=== PATIENT | female | born 2000 | race Caucasian/White ===

== ENCOUNTER 2024-05-10 09:45 | Inpatient (IN) | payer BC, SELFPAY ==
[2024-05-08 09:32] VITALS: BP 111/74
[2024-05-08 09:55] LABS: Hematocrit 39.9 % (37.0-47.0); Hemoglobin 13.6 g/dL (12.0-16.0); Mean Corp Hgb Conc. 34.1 g/dL (33.0-37.0); Mean Corpuscular Hgb 27.7 pg (27.0-31.0); Mean Corpuscular Volume 81.3 fL (81.0-99.0); Mean Platelet Volume 10.2 fL (7.4-10.4); Platelet Count 331 10^3/uL (130-400); Red Blood Cell Count 4.91 10^6/uL (4.20-5.40); Red Cell Dist. Width 13.9 % (11.5-14.5); White Blood Cell Count 14.1 10^3/uL (4.8-10.8)
[2024-05-08 10:25] LABS: ALT (SGPT) 44 U/L (0-35); AST (SGOT) 30 U/L (14-36); Albumin 4.6 g/dl (3.5-5.0); Alkaline Phosphatase 51 U/L (38-126); Blood Urea Nitrogen 14 mg/dl (7-17); Carbon Dioxide 25 mmol/L (22-30); Chloride 101 mmol/L (98-107); Glucose 85 mg/dl (70-99); Potassium 4.5 mmol/L (3.5-5.1); Sodium 141 mmol/L (135-145); Total Bilirubin 0.7 mg/dl (0.2-1.3); Total Protein 7.8 g/dl (6.3-8.2); eGFR > 60.00
[2024-05-08 10:47] LABS: % Basophils 0.8 % (0-2); % Eosinophils 2.9 % (0-6); % Immature Granulocytes 6.3 % (0-0.5); % Lymphocytes 16.2 % (20.5-51.1); % Monocytes 7.9 % (1.7-9.3); % Neutrophils 65.9 % (42.2-75.2); Absolute Basophils 0.1 10^3/uL (0-0.2); Absolute Eosinophils 0.4 10^3/uL (0-0.7); Absolute Immature Granulocytes 0.9 10^3/uL (0-0.05); Absolute Lymphocytes 2.3 10^3/uL (1.2-3.4); Absolute Monocytes 1.1 10^3/uL (0.1-0.6); Absolute Neutrophils 9.3 10^3/uL (1.4-6.5); Nucleated Red Blood Cells % 0 %
[2024-05-08 12:00] VITALS: BP 117/68
--- NOTE | 2024-05-08 12:24 | ED.GENMED ---
History of Present Illness
General
Chief Complaint: Cold/Flu/URI Symptoms
Source: patient
Exam Limitations: none
Time Seen by Provider: 05/08/24 11:02
Nursing documentation reviewed up to this point in time: agreed with
History of Present Illness
History of Present Illness:
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 Patient reports she has been on Augmentin, azithromycin and cefuroxime and is still having a cough productive of green mucus and
shortness of breath. Patient reports she does not have a history of asthma or smoking. Patient reports she is using albuterol at home every 4 hours via inhaler and finished a steroid Dosepak about 4 days ago. Patient reports that she feels like
she is gasping to breathe with just simple walking.
Past History
Past History
ED Past Medical History: Other (POTS syndrome)
ED Past Surgical History: Other (Partial nephrectomy)
Social History
Tobacco: Non-smoker
Alcohol: None
Drug: None
Personal: Other
Living: with family
Employment: Employed
Family History
Family History: Other
Review of Systems
Review of Systems
Allergies reviewed?: Yes
Other source history: family
All Other Systems: ROS reviewed and negative except as documented in HPI and ROS
Constitutional: Reports fatigue
EENT: Reports no symptoms
Respiratory: Reports cough and trouble breathing
Cardiac: Reports no symptoms
ABD/GI: Reports no symptoms
: Reports no symptoms
Musculoskeletal: Reports no symptoms
Skin: Reports no symptoms
Neurological: Reports no symptoms
Endocrine: Reports no symptoms
Hematologic/Lymphatic: Reports no symptoms
Psychiatric: Reports no symptoms
Phy Exam
Physical Exam
Physical Exam:
Physical Exam
General: Nontoxic, mild dyspnea with speaking
Neck: supple. no meningeal signs. normal psoterior pharynx
Heart: Tachycardic, no murmur
Lungs: Coughing, diffuse wheezing
Abdomen: normal bowel sounds. not tender. no CVAT
Neuro: alert and oriented. no focal neurological deficits
Skin: no rash
Psychiatric: well kept. interactive and cooperative
Extremities: no edema. no calf tenderness. negative homans. good distal pulses
Course
Orders/Labs/Results
Orders:
Orders
05/08/24 09:42
CMP [Comprehensive Metabolic Panel] Urgent
Complete Blood Count/With Diff Urgent
05/08/24 10:30
CR Chest - 2 Views Urgent
Comment:
Reason For Exam: worsening cough
05/08/24 12:23
Dexamethasone Sod Phosphate [Decadron] 10 mg IV NOW STA
Ipratropium/Albuterol Sulfate [Duoneb] 3 ml INH R NOW ONE
05/08/24 12:24
COVID-19 Antigen Urgent
Source: Nasal Swab
Influenza A+B Rapid Molecular Urgent
ROD Source: Nasal Swab
Specimen Description:
05/08/24 12:28
LevoFLOXacin 750 MG/150 ML [Levaquin] 750 mg in 150 ml IV NOW
05/08/24 12:29
Procalcitonin Urgent
PCT Algorithmm Indication: Respiratory
Abnormal Lab Results
05/08/24
09:42
WBC 14.1 H 10^3/uL
(4.8-10.8)
Abs Immat Gran (auto) 0.9 H 10^3/uL
(0-0.05)
Absolute Neuts (auto) 9.3 H 10^3/uL
(1.4-6.5)
Absolute Monos (auto) 1.1 H 10^3/uL
(0.1-0.6)
Immature Gran % 6.3 H %
(0-0.5)
Lymphocytes % 16.2 L %
(20.5-51.1)
ALT 44 H U/L
(0-35)
05/08/24 09:42
05/08/24 09:42
Vital Signs
Initial and Last Documented VS:
Initial Vital Signs
Temp Pulse Resp BP Pulse Ox
97.6 F 103 20 111/74 98
05/08/24 09:32 05/08/24 09:32 05/08/24 09:32 05/08/24 09:32 05/08/24 09:32
Last Documented Vital Signs
Temp Pulse Resp BP Pulse Ox
97.6 F 103 20 111/74 98
05/08/24 09:32 05/08/24 09:32 05/08/24 09:32 05/08/24 09:32 05/08/24 09:32
MDM/Problems Addressed
Differential Diagnosis Includes:
Acute viral pneumonia, acute bacterial pneumonia, CHF, PE
MDM/Problems Addressed:
Patient presents with acute shortness of breath, wheezing and cough
*Radiology
Radiology exam reviewed: preliminary read by ED provider (Left lower lobe infiltrate seen by me) and radiology read reviewed
*Pulse Oximetry
Patient hypoxic: no
*EKG
Interpreted by ED Provider?: NA
*Civil Engineering Intern Interpretation
Rate: Civil Engineering Intern- N/A
*Critical Care Note
Total Time (30-74mins, 75-104mins- exclusive of procedures): 35 minutes
comment:
35 minutes critical care given to patient including frequent reassessments of her respiratory effort, speaking to the admitting team, counseling the patient, reviewing her lab work and chest x-ray
Data Reviewed
Source: patient
Patient Management
Social determinants of health affecting care: Living situation and Strong social support
Discussion with other providers: Hospitalist
Escalation/DeEscalation of care consider admission/obs:
Given patient's persistent shortness of breath and wheezing despite outpatient steroids and albuterol, and clinical and radiographical signs of pneumonia despite outpatient antibiotics, decision made to admit patient for acute bronchospasm and
pneumonia
ED Attending Note
-
Portions of this chart may have been created with voice recognition software.� Occasional wrong word or��sound alike� substitutions may have occurred due to the inherent limitations of voice recognition software.
Discharge Plan
Departure
Patient Disposition: Admit
Date of Disposition: 05/08/24
Time of Disposition: 12:23
Admit to: Med/Surg
Presentation/result/management discussed w/ accepting MD/DO: Hospitalist
Patient with high blood pressure during this ER visit?: No
Condition: Good
Covid-19: Not Applicable
Discharge Problem:
Left lower lobe pulmonary infiltrate, Acute bronchospasm, Acute respiratory distress
Prescriptions:
No Action
cefpodoxime 200 mg Tablet
200 mg PO BID
albuterol sulfate 2.5 mg /3 mL (0.083 %) Solution For Nebulization
2.5 mg INHALATION R Q4HPRN PRN (Reason: sob)
cetirizine [Zyrtec] 10 mg Tablet
10 mg PO HS
zinc sulfate 50 mg zinc (220 mg) Tablet
50 mg PO DAILY
ascorbic acid (vitamin C) [Vitamin C] 500 mg Tablet
500 mg PO DAILY
albuterol sulfate [ProAir HFA] 90 mcg/actuation Hfa Aerosol Inhaler
2 puff INHALATION R Q6HPRN PRN (Reason: sob)
cholecalciferol (vitamin D3) [Vitamin D3] 25 mcg (1,000 unit) Tablet
25 mcg PO DAILY
guaifenesin [Mucinex] 600 mg Tablet Extended Release 12hr
600 mg PO BIDPRN PRN (Reason: cough)
magnesium oxide 400 mg magnesium Tablet
400 mg PO DAILY
Referrals:
Ijeoma Parker PA-C [Family Provider] -
Interventions
Interventions:
*Risk Screen - Suicide Last Done: 05/08/24 09:32
*General Assessment Last Done: 05/08/24 09:32
*ED COVID-19 Vaccine History Last Done: 05/08/24 09:32
Discharge Date and Time
Print Language: ARABIC
--- NOTE | 2024-05-08 12:49 | HPS.HSE ---
Addendum entered and electronically signed by Ernesto Vasquez MD 05/08/24 13:38:
I saw and examined the patient.
The SPUD DRILLER or PA's note was reviewed and I agree with the note.
Comment:
23F no significant PMH
a/w Post-Pneumonia Cough with Acute Bronchospasm
- pending procalcitonin -till then hold off on further antibiotics
- c/w Decadron
- c/w DuoNeb QID and PRN
- c/w Mucinex
- c/w Tessalon PRN
Full code
DVT Px w LMWH
Obs MS
Original Note:
Family Physician
-
Family Physician: Ijeoma Parker PA-C
Chief Complaint
-
Cough and Shortness of Breath
History of Present Illness
Patient is a 23 y/o female without significant past medical history who presents with persistent cough and shortness of breath. Patient reports her symptoms started about two weeks ago. She was seen at an urgent care facility last Thursday (about 9
days ago) at which time she tested negative for COVID and Influenza. She was given a coarse of azithromycin and cefpodoxime, as well as a coarse of steroids. She reports initial improvement, but states after she finished the coarse of steroids 4
days ago her symptoms worsened again. She reports cough is productive of green mucus, and she reports associated shortness of breath and chest tightness. She reports fever initially which resolved with antibiotics, and have not return. She has
been using an inhaler/nebulizer without much improvement in her symptoms. She does not smoke or vape, and denies any prior history of asthma.
Medical History
Past Medical History
Past Medical History: Reports Other
Additional Past Medical History:
Environmental Allergies
Past Surgical History: Reports Other
Additional Past Surgical History:
Partial Nephrectomy
Social History
Tobacco: Non-smoker
Alcohol: Occasional
Drug: None
Family History
Family History: Not pertinent
Allergies / Home Medications
Allergies reflects when Allergies were last updated in [facility].
Home Medications with original date entered in [facility]
Allergy/Medication List:
Allergies
Allergy/AdvReac Type Severity Reaction Status Date / Time
No Known Allergies Allergy Verified 05/08/24 09:35
Home Medications
albuterol sulfate 2.5 mg/3 mL (0.083 %) solution for nebulization 2.5 mg inhalation R Q4HPRN PRN sob 05/08/24
albuterol sulfate 90 mcg/actuation aerosol inhaler 2 puff inhalation R Q6HPRN PRN sob 05/08/24
ascorbic acid (vitamin C) 500 mg tablet (Vitamin C) 500 mg PO DAILY 05/08/24
cefpodoxime 200 mg tablet 200 mg PO BID 05/08/24
cetirizine 10 mg tablet (Zyrtec) 10 mg PO HS 05/08/24
cholecalciferol (vitamin D3) 25 mcg (1,000 unit) tablet (Vitamin D3) 25 mcg PO DAILY 05/08/24
guaifenesin 600 mg tablet, extended release 12 hr (Mucinex) 600 mg PO BIDPRN PRN cough 05/08/24
magnesium oxide 400 mg PO DAILY 05/08/24
zinc sulfate 50 mg zinc (220 mg) tablet 50 mg PO DAILY 05/08/24
Review of Systems
-
A 12 point ROS was completed and negative except as noted: Yes
Respiratory: Reports See HPI
Cardiac: Denies Chest Pain or Palpitations
Physical Exam
Vital Signs
Vital Signs
Temp Pulse Resp BP Pulse Ox
97.6 F 103 20 111/74 98
05/08/24 09:32 05/08/24 09:32 05/08/24 09:32 05/08/24 09:32 05/08/24 09:32
Physical Exam
General: Comfortable and Conversant
HEENT: Anicteric and Other (Mask present over nose and mouth); No Oxygen
Respiratory: Wheezes, Non Labored Respirations and Other (Frequent Cough)
Cardiac: S1/S2 and Regular Rhythm; No Tachycardia
GI: Soft and Non Distended
Musculoskeletal: No Clubbing and No Cyanosis
Skin: Warm and Dry
Neuro: Awake, Alert, Oriented and Nonfocal/grossly intact
Psych: Calm
Laboratory Results
-
05/08/24 09:42
05/08/24:42
Laboratory Results
Total Bilirubin 0.7 mg/dl (0.2-1.3) 05/08/24:42
AST 30 U/L (14-36) 05/08/24 09:42
ALT 44 U/L (0-35) H 05/08/24:42
Alkaline Phosphatase 51 U/L (38-126) 05/08/24 09:42
Chest X-Ray:
Left lower lobe pneumonia
Data Reviewed
-
Diagnostic Radiology: Report Reviewed by me
Lab Data: Labs Reviewed by me
Impression/Plan
-
Post-Pneumonia Cough with Acute Bronchospasm
-Check procalcitonin - If negative would hold off on further antibiotics
-Continue Decadron
-Continue Duoneb QID and PRN
-Continue Mucinex
-Add Tessalon PRN
Leukocytosis, likely related to recent steroids
-Patient reports fever have resolved, therefore doubt active infection
-Recheck CBC in AM
-Monitor fever curve
DVT proph: Lovenox
Code Status: Full Code
[2024-05-08] MEDS: DUONEB 3 ML INH ×3 (12:56→20:59)
[2024-05-08] MEDS: DECADRON 10 MG IV (12:56)
[2024-05-08 13:11] LABS: COVID-19 Antigen Negative (Negative)
[2024-05-08 13:50] LABS: Procalcitonin < 0.05 ng/ml (0.0-0.25)
[2024-05-08 14:00] VITALS: BP 109/72
[2024-05-08 16:00] VITALS: BP 104/63
[2024-05-08 17:04] VITALS: BP 110/92
[2024-05-08 17:05] VITALS: BMI 16.9
--- NOTE | 2024-05-08 17:20 | PTCARENOTE ---
Pt was received from ED. Pt ambulated to the room. Dyspnea on exertion and when talking. Occasional cough. Pt oriented to the room and the care plan.
[2024-05-08] MEDS: DECADRON 4 MG IV (20:13)
[2024-05-08] MEDS: MUCINEX 600 MG PO (20:13)
[2024-05-08] MEDS: TESSALON PERLES 200 MG PO (20:20)
[2024-05-08] MEDS: ZYRTEC 10 MG PO (21:46)
[2024-05-08 23:00] VITALS: BP 104/60
[2024-05-09] MEDS: DUONEB 3 ML INH ×5 (00:08→19:17)
[2024-05-09] MEDS: DECADRON 4 MG IV ×3 (04:54→21:10)
--- NOTE | 2024-05-09 06:33 | W.PN.HOSP.TC ---
Today's Communication/Plan
-
steroids
bronchodilators
increased mucinex
prn antitussives
Pulm eval requested
Assessment / Plan
Assessment / Plan
Physical Exam
General: Comfortable and Conversant
HEENT: Anicteric and Other (Mask present over nose and mouth); No Oxygen
Respiratory: Significant rhonchi left lung base
Cardiac: S1/S2 and Regular Rhythm; No Tachycardia
GI: Soft and Non Distended
Musculoskeletal: No Clubbing and No Cyanosis
Skin: Warm and Dry
Neuro: Awake, Alert, Oriented and Nonfocal/grossly intact
Psych: Calm
HPI: Patient is a 23 y/o female without significant past medical history who presents with persistent cough and shortness of breath. Patient reports her symptoms started about two weeks ago. She was seen at an urgent care facility last Thursday
(about 9 days ago) at which time she tested negative for COVID and Influenza. She was given a coarse of azithromycin and cefpodoxime, as well as a coarse of steroids. She reports initial improvement, but states after she finished the coarse of
steroids 4 days ago her symptoms worsened again. She reports cough is productive of green mucus, and she reports associated shortness of breath and chest tightness. She reports fever initially which resolved with antibiotics, and have not return.
She has been using an inhaler/nebulizer without much improvement in her symptoms. She does not smoke or vape, and denies any prior history of asthma
Post-Pneumonia Cough with Acute Bronchospasm
-Procal neg
- D-dimer neg
-Continue Decadron
-Continue Duoneb QID and PRN
-Continue Mucinex dose increased to 1200 mg BID
-incentive spirometer, acapella, Vest Chest PT
-Tessalon PRN
-Pulnaya ruiz requested
Leukocytosis, likely related to recent steroids
-Patient reports fever have resolved, therefore doubt active infection
-Recheck CBC in AM
-Monitor fever curve
DVT proph: encourage ambulation
Code Status: Full Code
I spent a total of 40 minutes with the patient or on the floor. More than 50% of this time involved counseling and coordination of care.
Anticipated Discharge: 24 - 48 hours
Subjective/Interval History
-
Date of Service: May 09, 2024
persistent cough. exertional dyspnea but otherwise stable respiratory status on room air. No issues with ambulation. Reports difficulty expectorating
Objective Data
-
Labs:
Laboratory Results
05/09/24
06:00
WBC Pending
Hgb Pending
Hct Pending
Plt Count Pending
Vital Signs:
Vital Signs
Temp Pulse Resp BP Pulse Ox
98.6 F 98 18 104/60 97
05/08/24 23:00 05/09/24 00:11 05/09/24 00:11 05/08/24 23:00 05/09/24 00:11
[2024-05-09 08:23] VITALS: BP 106/66
[2024-05-09] MEDS: ZINC 50 MG PO (08:49)
[2024-05-09] MEDS: VITAMIN D3 (cholecalciferol) 25 MCG PO (08:49)
[2024-05-09] MEDS: MUCINEX 600 MG PO (08:49)
[2024-05-09] MEDS: MAG-TAB SR 84 MG PO (08:49)
[2024-05-09] MEDS: VITAMIN C 500 MG PO (08:49)
[2024-05-09 09:08] LABS: Hematocrit 38.4 % (37.0-47.0); Hemoglobin 12.9 g/dL (12.0-16.0); Mean Corp Hgb Conc. 33.6 g/dL (33.0-37.0); Mean Corpuscular Hgb 27.6 pg (27.0-31.0); Mean Corpuscular Volume 82.1 fL (81.0-99.0); Mean Platelet Volume 10.8 fL (7.4-10.4); Platelet Count 330 10^3/uL (130-400); Red Blood Cell Count 4.68 10^6/uL (4.20-5.40); White Blood Cell Count 20.6 10^3/uL (4.8-10.8)
[2024-05-09 12:05] VITALS: BMI 16.9
[2024-05-09] MEDS: FLUSH (NSS) 1 FLUSH IV (12:11)
[2024-05-09 15:56] VITALS: BP 120/65
[2024-05-09 16:00] LABS: APTT 29.9 Sec (23.4-35.0)
[2024-05-09 16:07] LABS: D-Dimer < 0.27 ug/mlFEU (0.00-0.50)
--- NOTE | 2024-05-09 16:08 | PTCARENOTE ---
Pt AAO x3, DOLL well, OOB in room/to BR; ronald well. VSS. On room air- pulse ox 97%, pt denies SOB; has frequent harsh, non-productive cough. Abd soft, ronald PO well. Voids in BR without difficulty. Pt resting in bed at present, no c/o. Will
continue to monitor.
--- NOTE | 2024-05-09 16:44 | CON.PUL ---
Addendum entered and electronically signed by Bassem John MD 05/09/24 20:09:
Of note that she says that she had a partial nephrectomy as 'part of her kidney was ' at [age] of age
Original Note:
Consultation
Consultation Request
Date/Time Consultation Requested: 05/09/2024 - 1499
Date/Time Consultation Performed: 05/09/2024 - 1539
Requesting Provider: Dr. Gibbs
Performing Provider: Dr. John
Reason for Consultation: RENTERIA/Pneumonia
Medical History
-
Chief Complaint: Chills, headache + SOB
History of Present Illness:
23-year-old female with a past medical history of environmental allergies who presents with chills, JACKSON + SOB. She says she was recently diagnosed with pneumonia last week and has been on antibiotics + steroids but her SOB has persisted. 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 Her symptoms had initially began about 2 weeks ago and she went to an urgent care facility where she was negative for COVID-19 + flu. She was given azithromycin + cefpodoxime + steroids and had actually initially improved but then
symptoms began to worsen after finishing her steroids about 4 days ago. Her cough is productive of green phlegm and she has chest tightness + SOB. She has been using an inhaler/nebulizer at home without improvement in her SOB. She is a non-smoker
and has no history of chronic lung disease. In the ER she was afebrile to 97.6 �F, pulse rate 103, breathing at 20 breaths/min, BP 111/74 and saturating 98% on room air. Initial labs showed WBC 14.1, Hb 13.6, absolute eosinophil count 400, ALT
mildly elevated at 44, procalcitonin negative at <0.05 and COVID-19 antigen negative. Flu A/B swab negative. CXR shows a left lower lobe pneumonia. In the ER she was given DuoNebs + Decadron and admitted to the hospitalist service. Pulmonary now
consulted for additional management/recommendations.
When I saw the patient she was resting in bed with her boyfriend, Lopez, at bedside. All questions were answered. Lizt currently at bedside and she says it has been helping her get her phlegm out. She currently has white phlegm although was green
prior to arrival. She currently feels better with her SOB, but still unable to take in a deep breath due to cough and shortness of breath. She says that she used to get sick a lot when she was a child, especially with strep throat. She carries no
history of asthma. She has seasonal/cat allergies. Currently denies chest pain, JACKSON, abdominal pain, nausea, diarrhea, fevers or chills.
PMHx: Allergies
PSHx: Partial nephrectomy
Past Medical History
Past Medical History: Other (Above as per HPI)
Past Surgical History: Other (Above as per HPI)
Social History
Tobacco: Non-smoker
Alcohol: Occasional
Drug: None
Family History
Family History: Reviewed & Not Pertinent
Allergies / Home Medications
Allergies
Allergy/AdvReac Type Severity Reaction Status Date / Time
No Known Allergies Allergy Verified 05/08/24 09:35
Home Medications
�Medication �Instructions �Recorded �Confirmed �Last Taken �Type
albuterol sulfate 2.5 mg/3 mL 2.5 mg inhalation R Q4HPRN PRN sob 05/08/24 05/08/24 05/07/24 History
(0.083 %) solution for nebulization
albuterol sulfate 90 mcg/actuation 2 puff inhalation R Q6HPRN PRN sob 05/08/24 05/08/24 Unknown History
aerosol inhaler
ascorbic acid (vitamin C) 500 mg 500 mg PO DAILY Supplement 05/08/24 05/08/24 05/07/24 History
tablet (Vitamin C)
cefpodoxime 200 mg tablet 200 mg PO BID Infection 05/08/24 05/08/24 05/08/24 History
cetirizine 10 mg tablet (Zyrtec) 10 mg PO HS Allergies 05/08/24 05/08/24 05/07/24 History
cholecalciferol (vitamin D3) 25 25 mcg PO DAILY Supplement 05/08/24 05/08/24 Unknown History
mcg (1,000 unit) tablet (Vitamin
D3)
guaifenesin 600 mg tablet, 600 mg PO BIDPRN PRN cough 05/08/24 05/08/24 05/07/24 History
extended release 12 hr (Mucinex)
magnesium oxide 400 mg PO DAILY Electrolyte 05/08/24 05/08/24 Unknown History
Repletion
zinc sulfate 50 mg zinc (220 mg) 50 mg PO DAILY Supplement 05/08/24 05/08/24 Unknown History
tablet
Review of Systems
-
History Source: Patient
All other systems: Negative unless noted
Vitals / Labs / Diagnostic Testing
Vital Signs
Temp Pulse Resp BP Pulse Ox
98.3 F 100 18 120/65 97
05/09/24 15:56 05/09/24 15:56 05/09/24 15:56 05/09/24 15:56 05/09/24 16:08
Lab Data
05/09/24 08:27
05/08/24 09:42
Laboratory Results
05/09/24
15:30
APTT 29.9
Microbiology
05/09/24 15:45 Urine Legionella Urinary Antigen - Final
Negative for Legionella pneumophila Serogroup 1 antigen.
A negative result does not rule out the possiblity of
Legionella infection due to other serogroups or species of
Legionella. Clinical correlation is recommended.
05/08/24 12:39 Nasal Swab Influenza Types A & B (VEDA) - Final
Negative for Influenza A & B, NAAT
Negative results must be combined with clinical observations
and patient history.
Nucleic Acid Amplification test (NAAT)performed on the
[employer] platform.
Diagnostic Testing:
Physical Exam
-
HEENT: Normocephalic, Anicteric and Moist Mucous Membranes
Cardiovascular: S1/S2 and Peripheral Edema (negative)
Respiratory: Wheeze (negative), Rales (left base), Rhonchi (left base) and Non-Labored Respirations
GI: Soft, Non Distended, Non Tender and Normal Bowel Sounds
Neurology: AO x 3 and Tremors (negative)
Skin: Warm and Dry
General: Respiratory Distress (negative), Comfortable, Chills (negative) and Sweats (negative)
Assessment
-
Assessment: 23-year-old female with a past medical history of environmental allergies who presents with chills, JACKSON + SOB. She says she was recently diagnosed with pneumonia last week and has been on antibiotics + steroids but her SOB has
persisted. 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 Her symptoms had initially began about 2 weeks ago and she went to an urgent care facility where she was negative for COVID-19 + flu. She was given azithromycin + cefpodoxime + steroids and had actually initially
improved but then symptoms began to worsen after finishing her steroids about 4 days ago. Her cough is productive of green phlegm and she has chest tightness + SOB. She has been using an inhaler/nebulizer at home without improvement in her SOB.
She is a non-smoker and has no history of chronic lung disease. In the ER she was afebrile to 97.6 �F, pulse rate 103, breathing at 20 breaths/min, BP 111/74 and saturating 98% on room air. Initial labs showed WBC 14.1, Hb 13.6, absolute
eosinophil count 400, ALT mildly elevated at 44, procalcitonin negative at <0.05 and COVID-19 antigen negative. Flu A/B swab negative. CXR shows a left lower lobe pneumonia. In the ER she was given DuoNebs + Decadron and admitted to the
hospitalist service. Pulmonary now consulted for additional management/recommendations.
Chronic conditions FARM MECHANIC: Allergies
Impression:
#Acute respiratory failure with hypoxia likely due to acute bronchospasm in the setting of recent LLL CAP, possibly acute asthmatic exacerbation (undiagnosed) given absolute eosinophil count is 400
#Leukocytosis � likely steroid-induced
#Transaminitis with slightly elevated ALT
#History of environmental allergies
Plan:
- Continue with DuoNebs QID with prn doses for in between breakthrough symptoms
- Continue systemic steroids - currently on decadron 4mg IV q8hr - wean as she clinically improves and monitor BG with goal >100 and <180
- Will try to wean tomorrow to 4mg IV q12hr, and then hopefully can start prednisone taper on 05/11/2024
- Monitor fever curve
- check sputum Cx if pt can produce a decent sample
- Mucolytics with mucinex; antitussants with prn tessalon perles; vest therapy + acapella
- Check IgE level; trend eos level
- outpatient pulmonary follow up to be arranged for full PFTs and continued management of her SOB/RENTERIA and possible workup of asthma given her elevated eos; will consider FeNO in office once off steroids
- Maintain SpO2 >90-94% with supplemental O2 as needed
- trend LFTs
- Incentive spirometer encouraged
- Replete electrolytes with K>4, Mg>2
- DVT ppx: start LMWH
Pulmonary service will continue to follow along.
Data:
CXR 05/08/2024: Left lower lobe pneumonia.
Total time spent today was 57 minutes for this encounter. Time includes reviewing laboratory test/imaging results, reviewing pertinent medical records, obtaining and reviewing medical history, performing an appropriate exam, ordering medications,
tests and procedures. Time also includes documentation of this encounter, coordinating patient care and communicating with other healthcare professionals. Total time does not include separately billed tests performed on this date of service.
[2024-05-09] MEDS: MUCINEX 1200 MG PO (21:09)
[2024-05-09] MEDS: ZYRTEC 10 MG PO (21:09)
[2024-05-09 23:00] VITALS: BP 113/67
[2024-05-10] MEDS: DECADRON 4 MG IV ×2 (04:42→21:26)
[2024-05-10 06:44] LABS: Hematocrit 35.1 % (37.0-47.0); Mean Corp Hgb Conc. 34.2 g/dL (33.0-37.0); Mean Corpuscular Hgb 29.2 pg (27.0-31.0); Mean Corpuscular Volume 85.4 fL (81.0-99.0); Mean Platelet Volume 11.2 fL (7.4-10.4); Platelet Count 296 10^3/uL (130-400); Red Blood Cell Count 4.11 10^6/uL (4.20-5.40); Red Cell Dist. Width 14.2 % (11.5-14.5); White Blood Cell Count 27.9 10^3/uL (4.8-10.8)
[2024-05-10 06:48] LABS: ALT (SGPT) 33 U/L (0-35); AST (SGOT) 25 U/L (14-36); Albumin 4.3 g/dl (3.5-5.0); Alkaline Phosphatase 52 U/L (38-126); Blood Urea Nitrogen 15 mg/dl (7-17); Calcium 9.7 mg/dl (8.4-10.2); Carbon Dioxide 22 mmol/L (22-30); Chloride 103 mmol/L (98-107); Direct Bilirubin 0.2 mg/dl (0.0-0.4); Estimated Creatinine Clearance 111 ml/min; Glucose 104 mg/dl (70-99); Magnesium 2.1 mg/dl (1.6-2.3); Phosphorus 4.3 mg/dl (2.5-4.5); Potassium 4.6 mmol/L (3.5-5.1); Sodium 141 mmol/L (135-145); Total Bilirubin 0.4 mg/dl (0.2-1.3); Total Protein 7.3 g/dl (6.3-8.2); eGFR > 60.00
[2024-05-10] MEDS: DUONEB 3 ML INH ×4 (07:31→19:19)
--- NOTE | 2024-05-10 07:39 | W.PN.HOSP.TC ---
Today's Communication/Plan
-
steroid taper as per pulm
cont bronchodilators chest pt vest therapy
encourage incentive spirometer acapella use
Possible discharge tomorrow
Assessment / Plan
Assessment / Plan
Physical Exam
General: Comfortable and Conversant
HEENT: Anicteric normocephalic atraumatic
Respiratory: Significant rhonchi left lung base improved from prior
Cardiac: S1/S2 and Regular Rhythm; No Tachycardia
GI: Soft and Non Distended
Musculoskeletal: No Clubbing and No Cyanosis
Skin: Warm and Dry
Neuro: Awake, Alert, Oriented and Nonfocal/grossly intact
Psych: Calm
HPI: Patient is a 23 y/o female without significant past medical history who presents with persistent cough and shortness of breath. Patient reports her symptoms started about two weeks ago. She was seen at an urgent care facility last Thursday
(about 9 days ago) at which time she tested negative for COVID and Influenza. She was given a coarse of azithromycin and cefpodoxime, as well as a coarse of steroids. She reports initial improvement, but states after she finished the coarse of
steroids 4 days ago her symptoms worsened again. She reports cough is productive of green mucus, and she reports associated shortness of breath and chest tightness. She reports fever initially which resolved with antibiotics, and have not return.
She has been using an inhaler/nebulizer without much improvement in her symptoms. She does not smoke or vape, and denies any prior history of asthma
Post-Pneumonia Cough with Acute Bronchospasm
-Procal neg
- D-dimer neg
-Continue Decadron tapered as per pulm
-Continue Duoneb QID and PRN
-Continue Mucinex dose increased to 1200 mg BID
-incentive spirometer, acapella, Vest Chest PT
-Tessalon PRN
-Pulm eval appreciated
Leukocytosis, likely related to recent steroids
-Patient reports fever have resolved, therefore doubt active infection
-Recheck CBC in AM
-Monitor fever curve
DVT proph: encourage ambulation
Code Status: Full Code
I spent a total of 40 minutes with the patient or on the floor. More than 50% of this time involved counseling and coordination of care.
Anticipated Discharge: Within 24 hours
Subjective/Interval History
-
Date of Service: May 10, 2024
Cough exertional dyspnea improved. Overall patient reports feeling well.
Objective Data
-
Labs:
Laboratory Results
05/10/24
05:01
WBC 27.9 H
Hgb 12.0
Hct 35.1 L
Plt Count 296
Sodium 141
Potassium 4.6
Chloride 103
Carbon Dioxide 22
BUN 15
Creatinine 0.6
Glucose 104 H
Calcium 9.7
Total Bilirubin 0.4
AST 25
ALT 33
Alkaline Phosphatase 52
Vital Signs:
Vital Signs
Temp Pulse Resp BP Pulse Ox
98 F 80 20 113/67 97
05/09/24 23:00 05/09/24 23:00 05/09/24 23:00 05/09/24 23:00 05/09/24 23:00
I&O
05/09/24 05/10/24 05/11/24
06:59 06:59 06:59
Intake Total 480 / 480 1200 / 1200 120 / 120
Balance 480 / 480 1200 / 1200 120 / 120
[2024-05-10 07:40] VITALS: BP 104/70
[2024-05-10 08:48] LABS: % Basophils 0.3 % (0-2); % Immature Granulocytes 1.8 % (0-0.5); % Lymphocytes 4.7 % (20.5-51.1); % Monocytes 3.7 % (1.7-9.3); % Neutrophils 89.5 % (42.2-75.2); Absolute Basophils 0.1 10^3/uL (0-0.2); Absolute Immature Granulocytes 0.5 10^3/uL (0-0.05); Absolute Lymphocytes 1.3 10^3/uL (1.2-3.4); Absolute Neutrophils 24.9 10^3/uL (1.4-6.5); Nucleated Red Blood Cells % 0 %
[2024-05-10] MEDS: MUCINEX 1200 MG PO ×2 (08:56→21:26)
[2024-05-10] MEDS: VITAMIN D3 (cholecalciferol) 25 MCG PO (08:57)
[2024-05-10] MEDS: MAG-TAB SR 84 MG PO (08:57)
[2024-05-10] MEDS: ZINC 50 MG PO (08:57)
[2024-05-10] MEDS: VITAMIN C 500 MG PO (08:57)
--- NOTE | 2024-05-10 11:10 | W.PN.PUL3 ---
Today's Communication / Plan
-
Continue systemic steroids with transition to prednisone taper tomorrow if she continues to clinically improve
Mucolytics
Vest therapy
Follow up IgE level
Follow up sputum Cx
Urine antigens negative
Repeat imaging with CXR in 4-6 weeks to follow up PNA to resolution
Up OOB as tolerated
Start LMWH to DVT ppx
Hopefully can be DC'd home tomorrow and I will arrange for outpatient follow up with full PFTs +/- FeNO
Assessment
-
Assessment: 23-year-old female with a past medical history of environmental allergies who presents with chills, JACKSON + SOB. She says she was recently diagnosed with pneumonia last week and has been on antibiotics + steroids but her SOB has
persisted. 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 Her symptoms had initially began about 2 weeks ago and she went to an urgent care facility where she was negative for COVID-19 + flu. She was given azithromycin + cefpodoxime + steroids and had actually initially
improved but then symptoms began to worsen after finishing her steroids about 4 days ago. Her cough is productive of green phlegm and she has chest tightness + SOB. She has been using an inhaler/nebulizer at home without improvement in her SOB.
She is a non-smoker and has no history of chronic lung disease. In the ER she was afebrile to 97.6 �F, pulse rate 103, breathing at 20 breaths/min, BP 111/74 and saturating 98% on room air. Initial labs showed WBC 14.1, Hb 13.6, absolute
eosinophil count 400, ALT mildly elevated at 44, procalcitonin negative at <0.05 and COVID-19 antigen negative. Flu A/B swab negative. CXR shows a left lower lobe pneumonia. In the ER she was given DuoNebs + Decadron and admitted to the
hospitalist service. Pulmonary now consulted for additional management/recommendations.
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
Impression:
#Acute respiratory failure with hypoxia likely due to acute bronchospasm in the setting of recent LLL CAP, possibly acute asthmatic exacerbation (undiagnosed) given absolute eosinophil count is 400
#Leukocytosis � likely steroid-induced
#Transaminitis with slightly elevated ALT - now normalized
#History of environmental allergies
Plan:
- Continue with DuoNebs QID with prn doses for in between breakthrough symptoms
- Continue systemic steroids - currently on decadron 4mg IV q8hr - wean down to 4mg IV q12hr --> if she remains stable by tomorrow then we can transition to prednisone starting at 40mg and wean slowly by reducing by 10mg every 5th day until off
- Monitor BG while on steroids with goal >100 and <180
- Will try to wean tomorrow to 4mg IV q12hr, and then hopefully can start prednisone taper on 05/11/2024
- Monitor fever curve
- follow up sputum Cx
- Mucolytics with mucinex; antitussants with prn tessalon perles; vest therapy + acapella
- Follow up IgE level; absolute eosinophils now 0 s/p steroids
- outpatient pulmonary follow up to be arranged for full PFTs and continued management of her SOB/RENTERIA and possible workup of asthma given her elevated eos; will consider FeNO in office once off steroids
- Repeat imaging with CXR in 4-6 weeks to follow LLL PNA to resolution
- Maintain SpO2 >90-94% with supplemental O2 as needed
- Incentive spirometer encouraged
- Replete electrolytes with K>4, Mg>2
- DVT ppx: start LMWH
Pulmonary service will continue to follow along. Hopefully she can be discharged home tomorrow (05/11)
Data:
CXR 05/08/2024: Left lower lobe pneumonia.
Total time spent today was 36 minutes for this encounter. Time includes reviewing laboratory test/imaging results, reviewing pertinent medical records, obtaining and reviewing medical history, performing an appropriate exam, ordering medications,
tests and procedures. Time also includes documentation of this encounter, coordinating patient care and communicating with other healthcare professionals. Total time does not include separately billed tests performed on this date of service.
Subjective Data
-
Date of Service:
Date of Service: May 10, 2024
Chief Complaint: Pulmonary Follow Up
Subjective:
Pt seen this AM. She feels much better today. Remains on room air. Cough improved and she continues to find benefit from vest therapy. She denies chest pain, JACKSON, abd pain, N/V/f/c. Her boyfriend, Lopez, is at bedside, and all questions were
answered.
Review of Systems
General: Other (negative unless mentioned above)
Objective Data
Data Reviewed
Vital Signs / I&O / Oxygen:
Vital Signs
Temp Pulse Resp BP Pulse Ox
97.8 F 102 16 104/70 100
05/10/24 07:40 05/10/24 07:40 05/10/24 07:40 05/10/24 07:40 05/10/24 07:40
Intake and Output
05/09/24 05/10/24 05/11/24
06:59 06:59 06:59
Intake Total 480 / 480 1200 / 1200 120 / 120
Balance 480 / 480 1200 / 1200 120 / 120
SaO2 100
Physical Exam
General: Respiratory Distress (negative), Comfortable, Chills (negative) and Sweats (negative)
HEENT: Normocephalic and Anicteric
Cardiovascular: S1-S2 and Peripheral Edema (negative)
Respiratory: Wheeze (negative), Crackles (left base), Rhonchi (left base) and Non-Labored Respirations
GI: Soft, Non Distended, Non Tender and Normal Bowel Sounds
Neurology: AO x 3 and Tremors (negative)
Skin: Warm, Dry, Cyanosis (negative) and Jaundice (negative)
Labs/Micro/Reports
Lab Data
05/10/24 05:01
05/10/24 05:01
Laboratory Results
05/09/24
15:30
APTT 29.9
Microbiology
05/09/24 15:45 Urine Streptococcus pneumoniae Antigen (M - Final
Negative for Streptococcus pneumoniae antigen.
A negative result does not exclude infection with
Streptococcus pneumoniae. Clinical correlation is
recommended.
05/09/24 15:45 Urine Legionella Urinary Antigen - Final
Negative for Legionella pneumophila Serogroup 1 antigen.
A negative result does not rule out the possiblity of
Legionella infection due to other serogroups or species of
Legionella. Clinical correlation is recommended.
05/08/24 12:39 Nasal Swab Influenza Types A & B (VEDA) - Final
Negative for Influenza A & B, NAAT
Negative results must be combined with clinical observations
and patient history.
Nucleic Acid Amplification test (NAAT)performed on the
[employer] platform.
--- NOTE | 2024-05-10 14:48 | CM ---
CM met with pt bedside
Pt resides with a roommate in a 1st floor apartment with 3STE
Pt is independent with her ADLs, works FT
Pt has a working nebulizer at home
No financial insecurities
PCP- Ijeoma Parker
Rx- [facility]
Pt's mother is primary contact
Pt concerned with confidentiality
Wants to ensure her father is not made aware of her whereabouts nor info shared with him
Requesting chart to be made confidential
Update to admissions
Discharge Disposition- home, anticipate no needs
[2024-05-10 15:47] VITALS: BP 107/61
[2024-05-10] MEDS: ZYRTEC 10 MG PO (21:26)
[2024-05-10 23:30] VITALS: BP 100/63
--- NOTE | 2024-05-11 04:32 | DOWNTIME ---
There was a [employer] Client [employer] Downtime on 05/11/2024 from 0100 to 05/11/2024 at 0355. Downtime documentation of patient's care, including medication administrations, has been reconciled in the electronic record per guidelines. Refer to the
patient's paper chart under the miscellaneous tab to see printed paper medication records and downtime forms.
--- NOTE | 2024-05-11 07:26 | W.PN.HOSP.TC ---
Today's Communication/Plan
-
discharge
Assessment / Plan
Assessment / Plan
Physical Exam
General: Comfortable and Conversant
HEENT: Anicteric normocephalic atraumatic
Respiratory: Significant rhonchi left lung base improved from prior
Cardiac: S1/S2 and Regular Rhythm; No Tachycardia
GI: Soft and Non Distended
Musculoskeletal: No Clubbing and No Cyanosis
Skin: Warm and Dry
Neuro: Awake, Alert, Oriented and Nonfocal/grossly intact
Psych: Calm
HPI: Patient is a 23 y/o female without significant past medical history who presents with persistent cough and shortness of breath. Patient reports her symptoms started about two weeks ago. She was seen at an urgent care facility last Thursday
(about 9 days ago) at which time she tested negative for COVID and Influenza. She was given a coarse of azithromycin and cefpodoxime, as well as a coarse of steroids. She reports initial improvement, but states after she finished the coarse of
steroids 4 days ago her symptoms worsened again. She reports cough is productive of green mucus, and she reports associated shortness of breath and chest tightness. She reports fever initially which resolved with antibiotics, and have not return.
She has been using an inhaler/nebulizer without much improvement in her symptoms. She does not smoke or vape, and denies any prior history of asthma
Post-Pneumonia Cough with Acute Bronchospasm
-Procal neg
-D-dimer neg
-Continue Decadron tapered prednisone
-started on symbicort as per pulm
-Continue Duoneb QID and PRN
-Continue Mucinex 1200 mg BID
-incentive spirometer, acapella, Vest Chest PT
-Tessalon PRN
-Pulm eval appreciated
Leukocytosis, likely related to recent steroids
-consistently afebrile
-Leukocytosis resolving with steroid taper
DVT ppx: encourage ambulation
Code Status: Full Code
Medically stable for discharge home with outpatient follow up recommendations.
Total Time Preparing Discharge ___40____ minutes including examination of the patient, summary of the hospital stay, instructions for continuing care to all relevant caregivers; and preparation of discharge records, prescriptions, and referral
forms if necessary.
Anticipated Discharge: Today
Subjective/Interval History
-
Date of Service: May 11, 2024
reports overall improvement in symptoms. Feels well. Eager to go home
Objective Data
-
Labs:
Laboratory Results
05/11/24
06:00
WBC Pending
Hgb Pending
Hct Pending
Plt Count Pending
Vital Signs:
Vital Signs
Temp Pulse Resp BP Pulse Ox
98.2 F 86 16 100/63 98
05/10/24 23:30 05/10/24 23:30 05/10/24 23:30 05/10/24 23:30 05/10/24 23:30
I&O
05/10/24 05/11/24 05/12/24
06:59 06:59 06:59
Intake Total 1200 / 1200 1560 / 1560
Balance 1200 / 1200 1560 / 1560
[2024-05-11] MEDS: DECADRON 4 MG IV (07:42)
[2024-05-11] MEDS: ZINC 50 MG PO (07:43)
[2024-05-11] MEDS: MUCINEX 1200 MG PO (07:43)
[2024-05-11] MEDS: VITAMIN C 500 MG PO (07:43)
[2024-05-11] MEDS: VITAMIN D3 (cholecalciferol) 25 MCG PO (07:43)
[2024-05-11] MEDS: MAG-TAB SR 84 MG PO (07:44)
[2024-05-11] MEDS: DUONEB 3 ML INH ×3 (07:46→15:08)
--- NOTE | 2024-05-11 07:58 | W.PN.PUL3 ---
Today's Communication / Plan
-
Transition to OCS taper starting at 40mg and drop dose by 10mg every 5th day until off
DC home on Symbicort 160mcg 2 puffs BID, rinsing mouth after use
Continue prn albuterol
Follow up IgE level
Outpatient follow up for full PFTs +/- FeNO
Mucolytics
Vest therapy while inpatient - can always Rx this as an outpatient if her cough continues to bother her - cough has markedly improved though so I do not believe she needs to go home with this
Follow up sputum Cx (NGTD)
Urine antigens negative
Repeat imaging with CXR in 4-6 weeks to follow up PNA to resolution
Ok to DC home today. Pulmonary service will now sign off. Please call back with any questions. Thank you for allowing us to be involved in the care of this patient.
Assessment
-
Assessment: 23-year-old female with a past medical history of environmental allergies who presents with chills, JACKSON + SOB. She says she was recently diagnosed with pneumonia last week and has been on antibiotics + steroids but her SOB has
persisted. 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 Her symptoms had initially began about 2 weeks ago and she went to an urgent care facility where she was negative for COVID-19 + flu. She was given azithromycin + cefpodoxime + steroids and had actually initially
improved but then symptoms began to worsen after finishing her steroids about 4 days ago. Her cough is productive of green phlegm and she has chest tightness + SOB. She has been using an inhaler/nebulizer at home without improvement in her SOB.
She is a non-smoker and has no history of chronic lung disease. In the ER she was afebrile to 97.6 �F, pulse rate 103, breathing at 20 breaths/min, BP 111/74 and saturating 98% on room air. Initial labs showed WBC 14.1, Hb 13.6, absolute
eosinophil count 400, ALT mildly elevated at 44, procalcitonin negative at <0.05 and COVID-19 antigen negative. Flu A/B swab negative. CXR shows a left lower lobe pneumonia. In the ER she was given DuoNebs + Decadron and admitted to the
hospitalist service. Pulmonary now consulted for additional management/recommendations.
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
Impression:
#Acute respiratory failure with hypoxia likely due to acute bronchospasm in the setting of recent LLL CAP, possibly acute asthmatic exacerbation (undiagnosed) given absolute eosinophil count is 400
#Leukocytosis � likely steroid-induced
#Transaminitis with slightly elevated ALT - now normalized
#History of environmental allergies
Plan:
- While hospitalized, continue with DuoNebs QID with prn doses for in between breakthrough symptoms
- Continue systemic steroids - transition to prednisone taper today s/p decadron 4mg IV q12hr from q8hr; start prednisone starting at 40mg and wean slowly by reducing by 10mg every 5th day until off
- Monitor BG while on steroids with goal >100 and <180
- Monitor fever curve
- follow up sputum Cx (NGTD)
- Mucolytics with mucinex; antitussants with prn tessalon perles; vest therapy + acapella
- Follow up IgE level; absolute eosinophils now 0 s/p steroids
- outpatient pulmonary follow up to be arranged for full PFTs and continued management of her SOB/RENTERIA and possible workup of asthma given her elevated eos; will consider FeNO in office once off steroids
- DC home on LABA/ICS with Symbicort 160mcg 2 puffs BID, instructing to rinse mouth after use; also advise her to continue prn abuterol
- Repeat imaging with CXR in 4-6 weeks to follow LLL PNA to resolution
- Maintain SpO2 >90-94% with supplemental O2 as needed
- Incentive spirometer encouraged
- Replete electrolytes with K>4, Mg>2
- DVT ppx: LMWH
Ok to DC home today. Pulmonary service will now sign off. Please call back with any questions. Thank you for allowing us to be involved in the care of this patient.
Data:
CXR 05/08/2024: Left lower lobe pneumonia.
Total time spent today was 37 minutes for this encounter. Time includes reviewing laboratory test/imaging results, reviewing pertinent medical records, obtaining and reviewing medical history, performing an appropriate exam, ordering medications,
tests and procedures. Time also includes documentation of this encounter, coordinating patient care and communicating with other healthcare professionals. Total time does not include separately billed tests performed on this date of service.
Subjective Data
-
Date of Service:
Date of Service: May 11, 2024
Chief Complaint: Pulmonary Follow Up
Subjective:
Seen today, she feels much better. Cough is now dry, SOB markedly improved. She can ambulate without any difficulty breathing or chest pain. No abd pain, N/V/f/c, and is eager to go home. I spoke with boyfriend at bedside as well, Lopez, and
answered all her questions.
Review of Systems
General: Other (negative unless mentioned above)
Objective Data
Data Reviewed
Vital Signs / I&O / Oxygen:
Vital Signs
Temp Pulse Resp BP Pulse Ox
98.2 F 87 18 100/63 98
05/10/24 23:30 05/11/24 07:47 05/11/24 07:47 05/10/24 23:30 05/10/24 23:30
Intake and Output
05/10/24 05/11/24 05/12/24
06:59 06:59 06:59
Intake Total 1200 / 1200 1560 / 1560
Balance 1200 / 1200 1560 / 1560
SaO2 98
Nasal Cannula flow liters per 98
minute
Physical Exam
General: Respiratory Distress (negative), Comfortable, Chills (negative) and Sweats (negative)
HEENT: Normocephalic and Anicteric
Cardiovascular: S1-S2 and Peripheral Edema (negative)
Respiratory: Wheeze (negative), Crackles (left base), Rhonchi (left base) and Non-Labored Respirations
GI: Soft, Non Distended, Non Tender and Normal Bowel Sounds
Neurology: AO x 3 and Tremors (negative)
Skin: Warm, Dry, Cyanosis (negative) and Jaundice (negative)
Labs/Micro/Reports
Lab Data
05/10/24 05:01
Microbiology
05/10/24 07:58 Sputum Respiratory Culture - Final
05/10/24 07:58 Sputum Gram Stain - Final
05/09/24 15:45 Urine Streptococcus pneumoniae Antigen (M - Final
Negative for Streptococcus pneumoniae antigen.
A negative result does not exclude infection with
Streptococcus pneumoniae. Clinical correlation is
recommended.
05/09/24 15:45 Urine Legionella Urinary Antigen - Final
Negative for Legionella pneumophila Serogroup 1 antigen.
A negative result does not rule out the possiblity of
Legionella infection due to other serogroups or species of
Legionella. Clinical correlation is recommended.
05/08/24 12:39 Nasal Swab Influenza Types A & B (VEDA) - Final
Negative for Influenza A & B, NAAT
Negative results must be combined with clinical observations
and patient history.
Nucleic Acid Amplification test (NAAT)performed on the
[employer] platform.
[2024-05-11 08:09] VITALS: BP 103/65
[2024-05-11 08:22] LABS: Hematocrit 35.6 % (37.0-47.0); Hemoglobin 11.7 g/dL (12.0-16.0); Mean Corp Hgb Conc. 32.9 g/dL (33.0-37.0); Mean Corpuscular Hgb 27.9 pg (27.0-31.0); Mean Platelet Volume 10.6 fL (7.4-10.4); Platelet Count 269 10^3/uL (130-400); Red Blood Cell Count 4.19 10^6/uL (4.20-5.40); Red Cell Dist. Width 14.5 % (11.5-14.5); White Blood Cell Count 17.7 10^3/uL (4.8-10.8)
[2024-05-11] MEDS: DELTASONE 40 MG PO (12:05)
[2024-05-11 16:25] VITALS: BP 114/67
[2024-05-11] MEDS: SYMBICORT 160/4.5 MCG INHALER 2 PUFF INH (17:30)
--- NOTE | 2024-05-11 17:43 | W.DCSUMMARY ---
Discharge Summary
Discharge Data
Date of Admission: 05/10/24
Date of Discharge: 05/11/24
-
Pending Results: Yes
Additional Pending Results:
IgE level
Discharge Plan
-
Patient Disposition: Home (Routine Discharge)
Discharge Diagnosis/Procedures: Post-Pneumonia Cough with Acute Bronchospasm
Leukocytosis, likely related to recent steroids
Possible Acute Asthma Exacerbation
Condition: Good
Diet: Regular
Activity: As tolerated
Driving Restrictions: As prior to admission
Bathing Restrictions: None
Blood Work: Please repeat CBC with primary care provider in 1 week of discharge.
Others Tests: Repeat Chest X-ray with primary care provider or pulmonology in 4-6 weeks of discharge.
Follow up with Pulmonology for formal pulmonary function tests in 2-4 weeks of discharge.
Activity Restrictions/Additional Instructions:
Please follow up with primary care provider in 1 week of discharge and Pulmonology in 2-4 weeks of discharge.
Symbicort and Prednisone taper have been prescribed for bronchospasm and possible asthma exacerbation
With regards to Prednisone, taper has been prescribed as follows:
40 mg daily for 4 days then,
30 mg daily for 4 days then,
20 mg daily for 4 days then,
10 mg daily for the last 4 days
Please take medications as prescribed/recommended and follow up with primary care provider and/or other healthcare provider involved in your care for refills and/or further adjustment to your medication regimen as necessary.
Referrals:
Bassem John MD [Active] - in two to four weeks (full PFTs on day of office visit)
Ijeoma Parker PA-C [Family Provider] - in one week
Prescriptions:
New
budesonide-formoterol [Symbicort] 160-4.5 mcg/actuation HFA aerosol inhaler
2 puff inhalation BID Qty: 10.2 0RF
Rx Instructions:
rinse mouth after use
prednisone 10 mg Tablet
See Rx Instructions .ROUTE .COMPLEX Qty: 40 0RF
Rx Instructions:
Take By Mouth:
40 mg daily x4 days, 30 mg daily x4 days,
20 mg daily x4 days, 10 mg daily x4 days
Continued
albuterol sulfate 2.5 mg /3 mL (0.083 %) Solution For Nebulization
2.5 mg INHALATION R Q4HPRN PRN (Reason: sob)
cetirizine [Zyrtec] 10 mg Tablet
10 mg PO HS
zinc sulfate 50 mg zinc (220 mg) Tablet
50 mg PO DAILY
ascorbic acid (vitamin C) [Vitamin C] 500 mg Tablet
500 mg PO DAILY
albuterol sulfate 90 mcg/actuation Hfa Aerosol Inhaler
2 puff INHALATION R Q6HPRN PRN (Reason: sob)
cholecalciferol (vitamin D3) [Vitamin D3] 25 mcg (1,000 unit) Tablet
25 mcg PO DAILY
guaifenesin [Mucinex] 600 mg Tablet Extended Release 12hr
600 mg PO BIDPRN PRN (Reason: cough)
magnesium oxide 400 mg magnesium Tablet
400 mg PO DAILY
Discontinued
cefpodoxime 200 mg Tablet
200 mg PO BID
Discharge Orders:
Discharge Patient (As Directed); Ordered 05/11/24
Ordered By: Rajan Gibbs
Discharge Date and Time
Print Language: SWEDISH
[2024-05-12 08:47] LABS: IgE 92 kU/L (<=214)
== END 2024-05-11 18:34 | disposition home or self-care (01) | DRG 193 ==
LOC: 4 EAST ACU 09:45
PROVIDERS: Emergency Medicine; Physician Assistant Medical; ADMITTING PHYSICIAN Internal Medicine; ATTENDING PHYSICIAN Internal Medicine; CONSULT PHYSICIAN Internal Medicine Critical Care Medicine; EMERGENCY PHYSICIAN Emergency Medicine; FAMILY PHYSICIAN Physician Assistant
DX: J18.9 Pneumonia, unspecified organism (principal); J96.01 Acute respiratory failure with hypoxia; J45.901 Unspecified asthma with (acute) exacerbation; Z11.52 Encounter for screening for COVID-19
CPT/HCPCS: 71046; 80053; 82248; 82785; 83735; 84100; 84145; 85025; 85027; 85379; 85730; 87205; 87449; 87502; 87811; 87899; 94640; 94669; 99291

== ENCOUNTER 2024-09-09 14:21 | Emergency (ER) | payer BC, SELFPAY ==
[2024-09-09 14:30] VITALS: BP 100/65
[2024-09-09 15:02] LABS: % Basophils 0.2 % (0-2); % Eosinophils 0.2 % (0-6); % Immature Granulocytes 0.4 % (0-0.5); % Lymphocytes 6.8 % (20.5-51.1); % Monocytes 8.3 % (1.7-9.3); % Neutrophils 84.1 % (42.2-75.2); Absolute Lymphocytes 0.3 10^3/uL (1.2-3.4); Absolute Monocytes 0.4 10^3/uL (0.1-0.6); Absolute Neutrophils 3.9 10^3/uL (1.4-6.5); Hematocrit 35.2 % (37.0-47.0); Hemoglobin 11.7 g/dL (12.0-16.0); Mean Corp Hgb Conc. 33.2 g/dL (33.0-37.0); Mean Corpuscular Hgb 27.9 pg (27.0-31.0); Mean Corpuscular Volume 83.8 fL (81.0-99.0); Mean Platelet Volume 11.6 fL (7.4-10.4); Nucleated Red Blood Cells % 0 %; Platelet Count 137 10^3/uL (130-400); Red Cell Dist. Width 13.7 % (11.5-14.5); White Blood Cell Count 4.6 10^3/uL (4.8-10.8)
[2024-09-09 15:13] LABS: HCG, Serum Qualitative Screen Negative
[2024-09-09 15:20] LABS: ALT (SGPT) 20 U/L (0-35); AST (SGOT) 31 U/L (14-36); Albumin 4.5 g/dl (3.5-5.0); Alkaline Phosphatase 54 U/L (38-126); Blood Urea Nitrogen 8 mg/dl (7-17); Calcium 9.2 mg/dl (8.4-10.2); Carbon Dioxide 19 mmol/L (22-30); Chloride 102 mmol/L (98-107); Glucose 84 mg/dl (70-99); Potassium 4.1 mmol/L (3.5-5.1); Sodium 133 mmol/L (135-145); Total Bilirubin 0.6 mg/dl (0.2-1.3); Total Protein 7.3 g/dl (6.3-8.2); eGFR > 60.00
--- NOTE | 2024-09-09 15:51 | ED.GENMED ---
History of Present Illness
General
Chief Complaint: Abnormal Lab Value
Source: patient
Exam Limitations: none
Time Seen by Provider: 09/09/24 15:31
Nursing documentation reviewed up to this point in time: agreed with
History of Present Illness
History of Present Illness:
Patient is a 23-year-old female past medical history of asthma presents to the ER for evaluation. Patient started with productive cough tightness in chest and fevers as high as 101 since yesterday. She has been using her Symbicort, albuterol
nebulizer and albuterol inhaler. She went to urgent care and reports they told her she had pneumonia. She did not have an x-ray. They also sent her here' because they were concerned that I had sepsis because of the elevated heart rate.' Patient
was tested for COVID and flu which were both negative at urgent care.
Patient reports she has does not have an appetite and has not been drinking a lot of fluids. She is followed by Dr. John/pulmonary for her asthma.
She does feel little short of breath and has some tightness in her chest with coughing. She denies any lower extremity swelling. She is not on control. She does not smoke. No prior history of DVT PE.
She was hospitalized for pneumonia in April.
Past History
Past History
ED Past Medical History: Other (POTS syndrome)
ED Past Surgical History: Other (Partial nephrectomy)
Social History
Tobacco: Non-smoker
Alcohol: None
Drug: None
Personal: Other
Living: with family
Employment: Employed
Family History
Family History: Other
Review of Systems
Review of Systems
Allergies reviewed?: Yes
All Other Systems: ROS reviewed and negative except as documented in HPI and ROS
Constitutional: Reports no symptoms
Respiratory: Reports cough and trouble breathing
Cardiac: Reports no symptoms
ABD/GI: Reports no symptoms
Musculoskeletal: Reports no symptoms
Skin: Reports no symptoms
Neurological: Reports no symptoms
Psychiatric: Reports no symptoms
Phy Exam
General Physical Exam
General Presentation: no apparent distress
Course
Orders/Labs/Results
Orders:
Orders
09/09/24 14:30
Test Result ONCE
Chest [CR Chest - 2 Views ] Urgent
Comment:
Reason For Exam: SOB, fever
09/09/24 14:39
Complete Blood Count/With Diff Urgent
Comprehensive Metabolic Panel Urgent
HCG, Serum Qualitative Screen Urgent
09/09/24 16:00
IV Insert/Care/Rem.- Treatment PRN
0.9% Sodium Chloride 1000 ml [Nss] 1,000 ml IV BOLUS
Acetaminophen [Tylenol] 650 mg PO NOW STA
09/09/24 16:07
Lactic Acid Urgent
Abnormal Lab Results
09/09/24
14:39
WBC 4.6 L 10^3/uL
(4.8-10.8)
Hgb 11.7 L g/dL
(12.0-16.0)
Hct 35.2 L %
(37.0-47.0)
MPV 11.6 H fL
(7.4-10.4)
Absolute Lymphs (auto) 0.3 L 10^3/uL
(1.2-3.4)
Neutrophils % 84.1 H %
(42.2-75.2)
Lymphocytes % 6.8 L %
(20.5-51.1)
Sodium 133 L mmol/L
(135-145)
Carbon Dioxide 19 L mmol/L
(22-30)
09/09/24 14:39
09/09/24 14:39
Vital Signs
Initial and Last Documented VS:
Initial Vital Signs
Temp Pulse Resp Pulse Ox
99.7 F 122 20 100
09/09/24 14:27 09/09/24 14:27 09/09/24 14:27 09/09/24 14:27
Last Documented Vital Signs
Temp Pulse Resp BP Pulse Ox
99.7 F 102 16 96/46 97
09/09/24 14:27 09/09/24 17:00 09/09/24 17:00 09/09/24 17:00 09/09/24 17:00
Production Material Coordinator consulted with Physician
Production Material Coordinator consulted with physician?: Yes
Name of Physician Consulted: [email or web address]
MDM/Problems Addressed
Differential Diagnosis Includes:
Not limited to bronchitis, pneumonia viral syndrome
MDM/Problems Addressed:
Patient presents in no acute distress on exam she has no obvious wheezing temp 99.7 tachycardic on arrival likely from fever. She is not short of breath. Her white count is 4.6 her lactic is normal. Her chemistries are unremarkable. X-ray
suspicious for small left infrahilar infiltrate.
patient was given Tylenol and fluids very well-appearing stable for discharge home. case d/c w/ ED physician. Will treat with doxycycline. Patient initially asked about prednisone however no obvious wheezing will give patient a paper
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 She has all of her normal asthma medications including albuterol nebs and inhalers at home.
*Radiology
Radiology exam reviewed: radiology read reviewed
*Pulse Oximetry
Patient hypoxic: no
*Critical Care Note
Total Time (30-74mins, 75-104mins- exclusive of procedures): Not Applicable
ED Attending Note
-
Portions of this chart may have been created with voice recognition software.� Occasional wrong word or��sound alike� substitutions may have occurred due to the inherent limitations of voice recognition software.
Discharge Plan
Departure
Patient Disposition: Home (Routine Discharge)
Date of Disposition: 09/09/24
Time of Disposition: 17:19
Patient with high blood pressure during this ER visit?: No
Condition: Fair
Covid-19: Not Applicable
Discharge Problem:
Pneumonia
Instructions: Pneumonia in adults - Discharge instructions
Prescriptions:
New
doxycycline hyclate 100 mg capsule
100 mg PO BID Qty: 14 0RF
prednisone 20 mg tablet
40 mg PO DAILY Qty: 10 0RF
No Action
cetirizine [Zyrtec] 10 mg Tablet
10 mg PO HS
zinc sulfate 50 mg zinc (220 mg) Tablet
50 mg PO DAILY
ascorbic acid (vitamin C) [Vitamin C] 500 mg Tablet
500 mg PO DAILY
albuterol sulfate 90 mcg/actuation Hfa Aerosol Inhaler
2 puff INHALATION R Q6HPRN PRN (Reason: sob)
cholecalciferol (vitamin D3) [Vitamin D3] 25 mcg (1,000 unit) Tablet
25 mcg PO DAILY
guaifenesin [Mucinex] 600 mg Tablet Extended Release 12hr
600 mg PO BIDPRN PRN (Reason: cough)
magnesium oxide 400 mg magnesium Tablet
400 mg PO DAILY
budesonide-formoterol [Symbicort] 160-4.5 mcg/actuation HFA aerosol inhaler
2 puff inhalation BID Qty: 10.2 0RF
Rx Instructions:
rinse mouth after use
prednisone 10 mg Tablet
See Rx Instructions .ROUTE .COMPLEX Qty: 40 0RF
Rx Instructions:
Take By Mouth:
40 mg daily x4 days, 30 mg daily x4 days,
20 mg daily x4 days, 10 mg daily x4 days
albuterol sulfate 2.5 mg /3 mL (0.083 %) Solution For Nebulization
2.5 mg INHALATION R Q4HPRN PRN (Reason: sob) Qty: 180 0RF
Referrals:
YESSICA ESQUIVEL [Other]
Bassem John MD [Active] -
Stand Alone Forms: Return to Work
Activity Restrictions/Additional Instructions:
As discussed a prescription for doxycycline was sent to pharmacy take as directed. You were given the first dose here in the ER. Please continue to use your as previously prescribed Inhalers and medications as prescribed.
You were given a paper prescription for steroids you may fill if there is any wheezing. Continue to stay well-hydrated .
you may take Tylenol for your fever chills.
Follow-up closely with your family doctor and motor transport inspector .
return if any worsening of symptoms.
Interventions
Interventions:
*Risk Screen - Suicide Last Done: 09/09/24 15:18
*General Assessment Last Done: 09/09/24 15:18
*Neglect/Abuse Screening Last Done: 09/09/24 15:18
*ED COVID-19 Vaccine History Last Done: 09/09/24 15:18
Discharge Date and Time
Print Language: PARAGUAYAN
[2024-09-09] MEDS: NSS 1000 IV (16:18)
[2024-09-09] MEDS: TYLENOL 650 MG PO (16:18)
[2024-09-09 16:29] LABS: Lactic Acid 0.8 mmol/L (0.7-2.0)
[2024-09-09 17:00] VITALS: BP 96/46
[2024-09-09] MEDS: VIBRAMYCIN 100 MG PO (17:25)
== END 2024-09-09 17:32 | disposition home or self-care (01) ==
LOC: EMR 14:21
PROVIDERS: Nurse Practitioner; EMERGENCY PHYSICIAN Emergency Medicine
DX: J18.9 Pneumonia, unspecified organism (principal); J45.909 Unspecified asthma, uncomplicated; G90.A Postural orthostatic tachycardia syndrome [POTS]; Z87.01 Personal history of pneumonia (recurrent); Z90.5 Acquired absence of kidney
CPT/HCPCS: 99284; 96360; 71046; 80053; 83605; 84703; 85025